=== PATIENT | male | born 1990 | race Caucasian/White ===

== ENCOUNTER 2018-12-19 12:11 | Emergency (ER) | payer OTHER ==
[2018-12-19 12:20] VITALS: BP 129/79; PULSE 72; TEMP 98; BMI 26.2
--- NOTE | 2018-12-19 12:49 | PDOC ---
History of Present Illness - General Chief Complaint: Pain, Acute Stated Complaint: PAIN Time Seen by Provider: 12/19/18 12:18 History Source: Patient Exam Limitations: No Limitations - History of Present Illness Initial Comments: 12/19/18 12:38 STATE FELL ONTO outstretched hand yesterday, C/O persistant pain and some swelling to right wrist. Occurred: reports: yesterday Severity: reports: mild, moderate Pain Location: reports: upper extremity (right wrist ) Modifying Factors: improves with: cold therapy Loss of Consciousness: no loss of consciousness Associated Symptoms (Fall): denies symptoms Past History - Travel Traveled outside of the country in the last 30 days: No Close contact w/someone who was outside of country & ill: No - Past Medical History Allergies/Adverse Reactions: Allergies Allergy/AdvReac Type Severity Reaction Status Date / Time No Known Allergies Allergy Verified 12/19/18 12:15 Home Medications: Ambulatory Orders Ibuprofen 400 mg PO Q6H PRN #30 tablet 12/19/18 - Suicide/Smoking/Psychosocial Hx Smoking History: Never smoked Review of Systems - Review of Systems Able to Perform ROS?: Yes Is the patient limited Cam[place]onian proficient: Yes Constitutional: Yes: Symptoms Reported, See HPI. No: Fever, Malaise HEENTM: No: Symptoms Reported Musculoskeletal: Yes: Symptoms Reported, See HPI, Joint Pain, Joint Swelling *Physical Exam - Vital Signs Last Vital Signs Temp Pulse Resp BP Pulse Ox 98 F 72 16 129/79 99 12/19/18 12:17 12/19/18 12:17 12/19/18 12:17 12/19/18 12:17 12/19/18 12:17 - Physical Exam General Appearance: Yes: Nourished, Appropriately Dressed HEENT: positive: JADA, Normal ENT Inspection, TMs Normal, Pharynx Normal Neck: positive: Supple. negative: Tender Respiratory/Chest: positive: Lungs Clear Gastrointestinal/Abdominal: positive: Soft Musculoskeletal: positive: Normal Inspection Extremity: positive: Normal Capillary Refill, Normal Range of Motion (with supoination and pronation but mechani), Tender Integumentary: positive: Normal Color, Dry, Warm. negative: Bruising Neurologic: positive: photographic printer II-XII NML intact, Fully Oriented, Alert, Normal Mood/ Affect, Normal Response, Motor Strength 5/5 Moderate Sedation - Procedure Monitoring Vital Signs: Procedure Monitoring Vital Signs Temperature 98 F 12/19/18 12:17 Pulse Rate 72 12/19/18 12:17 Respiratory Rate 16 12/19/18 12:17 Blood Pressure 129/79 12/19/18 12:17 O2 Sat by Pulse Oximetry (%) 99 12/19/18 12:17 ED Treatment Course - RADIOLOGY Radiology Studies Ordered: Category Date Time Status WRIST- RIGHT [RAD] Stat Radiology 12/19/18 12:37 Ordered Progress Note - Progress Note Progress Note: X-ray negative for fractures or dislocations, wrist splint placed, and will provide ibuprofen for pain relief *DC/Admit/Observation/Transfer Diagnosis at time of Disposition: Right wrist sprain Qualifiers: Encounter type: initial encounter Qualified Code(s): S63.501A - Unspecified sprain of right wrist, initial encounter - Discharge Dispostion Disposition: HOME Condition at time of disposition: Stable Decision to Admit order: No - Referrals Referrals: Artemio Dize MD [Staff Physician] - - Patient Instructions Printed Discharge Instructions: DI for Wrist Strain Additional Instructions: Rest, ice to area on and off for 15 minutes 4-6 times a day Avoid heavy lifting or exercise until pain and swelling is resolved or until further directed Keep area highly elevated to reduce swelling Use splints/Antione wrap as directed Followup with orthopedist in one to 2 days if not improving, if significantly improved may wait one week for followup with orthopedist May use ibuprofen 2-200 mg tablets every 6 hours as needed for pain - Post Discharge Activity Forms/Work/School Notes: Back to Work
== END 2018-12-19 13:17 | disposition home or self-care (01) ==
LOC: JERFT 12:11
PROC: 2W3CX1Z Immobilization of Right Lower Arm using Splint (ICD-10-PCS; principal; 2018-12-19)
DX: S63.501A Unspecified sprain of right wrist, initial encounter (principal); W18.39XA Other fall on same level, initial encounter; Y93.89 Activity, other specified; Y92.89 Other specified places as the place of occurrence of the external cause; Y99.8 Other external cause status
CPT/HCPCS: 73110-TC-RT-FY; 99281-25

== ENCOUNTER 2019-10-24 14:23 | Emergency (ER) | payer SELFPAY ==
[2019-10-24 14:29] VITALS: BMI 26.6
--- NOTE | 2019-10-24 14:46 | PDOC ---
History of Present Illness - General Chief Complaint: Headache Stated Complaint: HEADACHE Time Seen by Provider: 10/24/19 14:43 - History of Present Illness Initial Comments: 10/24/19 14:46 HPI: 29 y/o M with no pmh presenting with 5 days of headache and generalized body pain. Headache is generalized and "feels strong" and is rated 6-7/10. Attempted tylenol the past 2 days without any resolution of pain. Denies any nausea, emesis, neck pain, meningismus, change in vision, syncope, trauma. He also reports generalized body aches everywhere. He denies triggers, recent sick contacts. Denies chest pain, SOB, sore throat, rhinorrhea, cough, abd pain, dysuria, change in appetite, weakness. He also reports subjective fevers. PMHx: as noted above ROS: as noted SHx: Denies tobacco use; occasional alcohol use; no rec drugs Allergies: NKDA ROS: GENERAL/CONSTITUTIONAL: +fever. No weakness. HEAD, EYES, EARS, NOSE AND THROAT: No change in vision. No ear pain or discharge. No sore throat. CARDIOVASCULAR: No chest pain or shortness of breath RESPIRATORY: No cough, wheezing, or hemoptysis. GASTROINTESTINAL: No nausea, vomiting, diarrhea or constipation. GENITOURINARY: No dysuria, frequency, or change in urination. MUSCULOSKELETAL: No joint or muscle swelling or pain. No neck or back pain. SKIN: No rash NEUROLOGIC: +headache; no vertigo, loss of consciousness, or change in strength/ sensation. ENDOCRINE: No increased thirst. No abnormal weight change HEMATOLOGIC/LYMPHATIC: No anemia, easy bleeding, or history of blood clots. ALLERGIC/IMMUNOLOGIC: No hives or skin allergy. PE: GENERAL: Awake, alert, and fully oriented, no acute distress HEAD: No signs of trauma, normocephalic, atraumatic EYES: EOMI, sclera anicteric, conjunctiva clear ENT: Auricles normal inspection, hearing grossly normal, TMs non-injected, nares patent, non-edmatous turbinates, oropharynx clear without exudates. Moist mucosa NECK: Normal ROM, no lymphadenopathy LUNGS: No increased work of breathing, symmetrical chest rise, clear to auscultation bilaterally, no wheezes, crackles or rhonchi HEART: Regular rate and rhythm, normal S1 and S2, no murmurs, peripheral pulses 2+ and equal bilaterally. ABDOMEN: Soft, nondistended, nontender, normoactive bowel sounds. No guarding, no rebound. No masses. No CVAT EXTREMITIES: Normal inspection, Normal range of motion, no edema. No clubbing or cyanosis. NEUROLOGICAL: Cranial nerves II through XII grossly intact. Normal speech, normal gait, no focal sensorimotor deficits SKIN: Warm, Dry, normal turgor, no rashes or lesions noted Past History - Past Medical History Allergies/Adverse Reactions: Allergies Allergy/AdvReac Type Severity Reaction Status Date / Time No Known Allergies Allergy Verified 10/24/19 14:29 Home Medications: Ambulatory Orders Ibuprofen 400 mg PO Q6H PRN #30 tablet 12/19/18 COPD: No - Psycho Social/Smoking Cessation Hx Smoking History: Never smoked *Physical Exam - Vital Signs Last Vital Signs Temp Pulse Resp BP Pulse Ox 98.4 F 90 18 145/90 99 10/24/19 14:27 10/24/19 14:27 10/24/19 14:27 10/24/19 14:27 10/24/19 14:27 Medical Decision Making - Medical Decision Making 10/24/19 15:28 29 y/o M with no pmh presenting with 5 days of headache and generalized body pain. VSS, AF. PE unremarkable. DDx includes tension headache, viral illness, mirgraine headache. SAH unlikely due to moderate severity, 5 day long episode, no nausea or emesis. -ivf, reglan, ofirmev -reassess 10/24/19 16:28 s/p meds patient reports symptoms significantly improved but not fully resolved discussed with patient likely tension LEARY vs viral illness will administer toradol discussed with patient return pcxns; he understands information and is agreeable to DC home; all questions were answered Discharge - Discharge Information Problems reviewed: Yes Clinical Impression/Diagnosis: Headache Condition: Improved Disposition: HOME - Follow up/Referral - Patient Discharge Instructions Patient Printed Discharge Instructions: DI for Headache Additional Instructions: Additional Instructions: Please return to the emergency department with any new or worsening symptoms or concerns including worsening headache, persistent vomiting, fainting. Please follow up with your primary care physician within 72 hours as needed for re-evaluation You may take tylenol 650mg every 6 hours or motrin 600mg every 6 hours for pain control Instrucciones adicionales: Regrese al departamento de emergencias con cualquier sntoma o inquietud nueva o que empeore, incluyendo empeoramiento de dolor de cris, vmitos persistentes , desmayos. Alethea un jen con wilson mdico de atencin primaria dentro de las 72 horas, segn sea necesario para la reevaluacin Puede catrachito tylenol 650 mg cada 6 horas o motrin 600 mg cada 6 horas para controlar el dolor. - Post Discharge Activity
--- NOTE | 2019-10-24 14:46 | PDOC ---
Attending Attestation - Resident Resident Name: Carter Coleman - HPI HPI: 10/24/19 16:09 Pt presents to the ED complaining of diffuse headache that has been present for the last week. Denies nausea, vomiting or fever. Pain was gradual onset, is moderate in severity and is associated with generalized body aches. Denies prior headache history. Denies photophobia or visual changes. Took advil at home without relief. - Physicial Exam PE: 10/24/19 16:20 Agree with resident exam. Patient is alert and oriented and in no acute distress. Neuro: alert and oriented x 3, normal mood and affect, CN grossly intact, speech fluent and clear. - Medical Decision Making 10/24/19 16:21 Pt presents to the ED complaining of diffuse headache. Low concern for subarachnoid given the gradual onset and moderate severity. Will treat with ibuprofen and reglan and reassess. Will discharge home if feels improved after treatment. 10/24/19 16:22
[2019-10-24] MEDS ORDERED: SODIUM CHLORIDE 1,000 ML IV STA (15:03)
[2019-10-24] MEDS ORDERED: ACETAMINOPHEN 1000 MG/100 ML VIAL (NON FORMULARY) IVPB ONE (15:03)
[2019-10-24] MEDS ORDERED: METOCLOPRAMIDE HCL INJECTION 10 MG/2 ML VIAL IVPUSH ONE (15:05)
[2019-10-24] MEDS ORDERED: METOCLOPRAMIDE HCL INJECTION 10 MG/2 ML VIAL ONE (15:09)
[2019-10-24] MEDS ORDERED: ACETAMINOPHEN INJECTION 100 ML IVPB ONE (15:09)
[2019-10-24] MEDS ORDERED: KETOROLAC TROMETHAMINE 30 MG/1 ML VIAL IVPUSH ONE (16:27)
[2019-10-24] MEDS ORDERED: KETOROLAC TROMETHAMINE 30 MG/1 ML VIAL ONE (16:37)
[2019-10-24 16:50] VITALS: BP 140/69; PULSE 86; TEMP 98
== END 2019-10-24 17:05 | disposition home or self-care (01) ==
LOC: JER 14:23
PROC: 3E0333Z Introduction of Anti-inflammatory into Peripheral Vein, Percutaneous Approach (ICD-10-PCS; principal; 2019-10-24)
PROC: 3E033GC Introduction of Other Therapeutic Substance into Peripheral Vein, Percutaneous Approach (ICD-10-PCS; 2019-10-24)
DX: R51 Headache (principal)
CPT/HCPCS: 99282-25; J0131; J7030